=== PATIENT | male | born 1960 | race Caucasian/White ===

== ENCOUNTER 2020-04-08 07:00 | Day surgery (SDC) | payer OTHER ==
[~2020-04-08] VITALS: Ht 182.9 cm; Wt 105.7 kg
[2020-04-08] MEDS ORDERED: MYFORTIC360 MG (07:24)
[2020-04-08] MEDS ORDERED: ENVARSUS XR1 MG (07:24)
[2020-04-08] MEDS ORDERED: ADULT LOW DOSE81 M1 (07:25)
[2020-04-08] MEDS ORDERED: XERALTO (07:25)
[2020-04-08] MEDS ORDERED: PROTONIX40 MG (07:26)
[2020-04-08] MEDS ORDERED: NORVASC10 MG (07:26)
[2020-04-08] MEDS ORDERED: AVAPRO300 MG (07:27)
[2020-04-08] MEDS ORDERED: LOPRESSOR HCT1 EACH (07:27)
[2020-04-08] MEDS ORDERED: CARDURA8 MG (07:27)
[2020-04-08] MEDS ORDERED: AMBIEN10 MG (07:28)
[2020-04-08] MEDS ORDERED: CLONAZEPAM0.5 MG (07:28)
[2020-04-08] MEDS ORDERED: NEURONTIN600 M1 (07:28)
[2020-04-08] MEDS ORDERED: LASIX40 MG (07:28)
[2020-04-08] MEDS ORDERED: CLARITIN5 MG (07:29)
[2020-04-08] MEDS ORDERED: DIALYVITE 8000.8 M1 (07:29)
[2020-04-08] MEDS ORDERED: XARELTO2.5 MG (16:00)
[2020-04-08] MEDS ORDERED: METOPROLOL TART50 MG (16:04)
[2020-04-08] MEDS ORDERED: RAYOS5 MG (16:04)
[2020-04-08] MEDS ORDERED: HYDRALAZINE HC100 MG (16:05)
[2020-04-08] MEDS ORDERED: ULTRAM50 MG PO (16:48)
[2020-04-08] MEDS ORDERED: KEFLEX500 MG PO (16:48)
== END 2020-04-08 13:00 | disposition home or self-care (01) ==
LOC: CIR.AMB 07:00 → ER 07:00 → O/R 08:26 → SEC-K 08:26 → ER 08:26 → CIR.AMB 09:00 → EDSTATUS 13:00 → SEC-K 14:16 → O/R 14:16 → SURG 16:25 → O/R 16:25 → SURG 17:08 → O/R 17:08
PROVIDERS: ATTEND Surgery
DX: C67.9 Malignant neoplasm of bladder, unspecified (principal); Z94.0 Kidney transplant status; Z94.83 Pancreas transplant status; R31.0 Gross hematuria; I10 Essential (primary) hypertension; E11.9 Type 2 diabetes mellitus without complications; I73.89 Other specified peripheral vascular diseases; Z89.421 Acquired absence of other right toe(s); Z20.828 Contact with and (suspected) exposure to other viral communicable diseases

== ENCOUNTER 2021-01-07 07:35 | Outpatient (CLI) | payer OTHER ==
[~2021-01-07 07:35] MED LIST: ADULT LOW DOSE81 M1; AMBIEN10 MG; AVAPRO300 MG; CARDURA8 MG; CLARITIN5 MG; CLONAZEPAM0.5 MG; DIALYVITE 8000.8 M1; ENVARSUS XR1 MG; HYDRALAZINE HC100 MG; KEFLEX500 MG PO; LASIX40 MG; LOPRESSOR HCT1 EACH; METOPROLOL TART50 MG; MYFORTIC360 MG; NEURONTIN600 M1; NORVASC10 MG; PROTONIX40 MG; RAYOS5 MG; ULTRAM50 MG PO; XARELTO2.5 MG; XERALTO
== END 2021-01-07 07:42 | disposition home or self-care (01) ==
LOC: RX STUDY 07:35
PROVIDERS: ATTEND Urology
DX: R31.1 Benign essential microscopic hematuria (principal)